=== PATIENT | female | born 1965 | race Hispanic/Latino ===

== ENCOUNTER → 2019-06-11 | Outpatient (CLI) | payer OTHER | END | disposition home or self-care (01) | LOC: RAH 14:00 | PROVIDERS: ATTEND Internal Medicine Critical Care Medicine | DX: E04.2 Nontoxic multinodular goiter (principal) | CPT/HCPCS: 76536 ==

== ENCOUNTER 2019-08-01 07:58 | Day surgery (SDC) | payer OTHER ==
[~2019-08-01] VITALS: Ht 170.2 cm; Wt 87.5 kg
[~2019-08-01 07:58] MED LIST: ASPI-555 PO; FOLI20CA PO; IBUP-2784 PO; LEVO100T12 PO; PHEN100C23 PO; SODIUM CHLORIDE 0.9% 1000ML 1,000 ML IV ONE
[2019-08-01 09:48] VITALS: BP 113/72
[2019-08-01] MEDS ORDERED: PROPOFOL 10 MG/ML 20ML VIAL IV ONE (10:45)
[2019-08-01 11:06] VITALS: BP 99/59
[2019-08-01] MEDS ORDERED: GLYCOPYRROLATE 0.2 MG/ML 5 ML VIAL ONE (11:06)
[2019-08-01 11:10] VITALS: BP 92/59
[2019-08-01 11:15] VITALS: BP 99/61
[2019-08-01 11:20] VITALS: BP 102/68
== END 2019-08-01 11:33 | disposition home or self-care (01) ==
LOC: ENDO 07:58 → DAH 07:58 → ENDO 11:33
PROVIDERS: ATTEND Internal Medicine Gastroenterology
DX: Z12.11 Encounter for screening for malignant neoplasm of colon (principal); K63.5 Polyp of colon; G40.909 Epilepsy, unspecified, not intractable, without status epilepticus; Z80.0 Family history of malignant neoplasm of digestive organs; Z79.899 Other long term (current) drug therapy; Z98.51 Tubal ligation status
CPT/HCPCS: 45380; A4215; A4221; A4222; A4223; A4615; A4663; J2704; J3490; J7030

== ENCOUNTER → 2020-05-04 | Outpatient (CLI) | payer OTHER ==
[~2020-05-04] MED LIST changes: -ASPI-555 PO; +ASPI-556 PO; -SODIUM CHLORIDE 0.9% 1000ML 1,000 ML IV ONE
== END | disposition home or self-care (01) ==
LOC: RAH 10:58
PROVIDERS: ATTEND Otolaryngology Plastic Surgery within the Head & Neck
DX: E04.2 Nontoxic multinodular goiter (principal)
CPT/HCPCS: 76536

== ENCOUNTER 2023-10-28 09:00 | Emergency (ER) | payer OTHER ==
[~2023-10-28] VITALS: Ht 170.2 cm; Wt 88.0 kg
[2023-10-28 11:01] VITALS: BP 123/83; PULSE 70; RESP 14; O2SAT 98
== END 2023-10-28 11:09 | disposition home or self-care (01) ==
LOC: EDH 09:00
DX: S86.812A Strain of other muscle(s) and tendon(s) at lower leg level, left leg, initial encounter (principal); I10 Essential (primary) hypertension; E78.00 Pure hypercholesterolemia, unspecified; E03.9 Hypothyroidism, unspecified; Z79.899 Other long term (current) drug therapy; Z79.82 Long term (current) use of aspirin; Z98.890 Other specified postprocedural states; Z90.710 Acquired absence of both cervix and uterus
CPT/HCPCS: 29505; 73562